=== PATIENT | female | born 1985 ===

== ENCOUNTER → 2025-10-12 11:10 | Outpatient (BNVA) | payer MEDICAID, SELFPAY | PROVIDERS: PCP Registered Nurse; Visit Provider Specialist | DX: R56.9 Unspecified convulsions (principal); G43.711 Chronic migraine without aura, intractable, with status migrainosus | CPT/HCPCS: 36415; 82085; 82550; 82607; 83516; 83519; 84443; 85651; 86160; 86162; 86235; 86255; 86376 ==